=== PATIENT | female | born 1960 | race Caucasian/White ===

== ENCOUNTER → 2016-09-07 | Outpatient (CLI) | payer OTHER ==
[~2016-09-07] VITALS: Ht 162.6 cm; Wt 93.2 kg
[~2016-09-07] MED LIST: ALPRAZOLAM0.25 M2; ASCOMP WITH CO1 EACH PO; BENTYL10 MG PO; BIOTIN1000 MCG PO; BUTISOL SODIUM30 MG PO; COZAAR25 MG PO; CYMBALTA60 MG; ELOCON 0.1% CRE15 GM TP; ESTER-C 1,0001 EACH PO; FISH OIL 1,001000 M2 PO; GLUCOPHAGE1000 MG PO; KENALOG,ARISTOC80 GM TP; LIPITOR20 MG; LO-DOSE ASPIRIN81 M1 PO; LYRICA100 MG; LYRICA300 MG PO; MAGNESIUM400 M1 PO; NEURONTIN300 MG PO; NEXIUM40 MG; SKELAXIN400 M1; VICODIN 5-3001 EACH PO; VITAMIN B122500 MCG PO; VITAMIN D400 UNIT PO
[2016-09-07 07:42] VITALS: BP 154/76
== END | disposition home or self-care (01) ==
LOC: IVINF 08-12 07:00
PROVIDERS: Internal Medicine Endocrinology, Diabetes & Metabolism
DX: R79.89 Other specified abnormal findings of blood chemistry (principal)
CPT/HCPCS: 80400; 82024 90; 82533 91; 96374; J0834

== ENCOUNTER 2016-12-14 17:59 | Inpatient (IN) | payer OTHER ==
[~2016-12-14] VITALS: Ht 167.6 cm; Wt 97.3 kg
[~2016-12-14 17:59] MED LIST changes: -ALPRAZOLAM0.25 M2; +ALPRAZOLAM0.25 M2 PO; -NEXIUM40 MG; +NEXIUM40 MG PO
[2016-12-14 19:10] LABS: EOSINOPHIL (%) 5.4 % (0-5); EOSINOPHIL COUNT 0.5 K/uL (0-0.3); HEMATOCRIT 40.3 % (36.0-46.0); IMMATURE GRANULOCYTE (%) 0.3 % (0.0-0.7); INSTRUMENT ABS NEUTROPHIL CT 7.1 K/uL; LYMPHOCYTE COUNT 1.2 K/uL (1.0-2.8); MCH 28.1 PG (29.0-34.0); MCHC 32.5 G/DL (30.0-36.0); MCV 86.3 FL (83-99); MEAN PLAT.VOLUME 9.8 uM^3 (9.5-12.4); MONOCYTE (%) 5.1 % (3-12); MONOCYTE COUNT 0.5 K/uL (0-0.8); NEUTROPHIL (%) 76.3 % (45-76); NEUTROPHIL COUNT 7.1 K/uL (1.8-6.4); PLATELET COUNT 346 K/uL (156-360); RBC DIS.WIDTH-CV 12.7 % (11.8-14.6); RBC DIS.WIDTH-SD 39.7 % (39-53); RED BLOOD COUNT 4.67 M/uL (3.80-5.20); WHITE BLOOD COUNT 9.3 K/uL (4.1-10.2)
[2016-12-14 19:18] LABS: ADD MIUA? YES; BILIRUBIN NEGATIVE; BLOOD NEGATIVE; COLOR YELLOW ((YELLOW)); GLUCOSE (STRIP) NEGATIVE; KETONES NEGATIVE; LEUKOCYTES TRACE; NITRITE NEGATIVE; PROTEIN (STRIP) NEGATIVE; SPECIFIC GRAVITY 1.012 (1.000-1.030); UROBILINOGEN 0.2 MG/DL (0.2-1.0)
[2016-12-14 19:22] LABS: CHLORIDE 105 mEq/L (99-109); POTASSIUM 4.9 mEq/L (3.7-5.4); SODIUM 140 mEq/L (136-147)
[2016-12-14 19:23] LABS: BACTERIA NONE SEEN /HPF; EPITHELIAL CELLS RARE /HPF; MUCUS TRACE /LPF; RED BLOOD CELLS 0-5 /HPF (0-5); UCUL ADDED? NO; WHITE BLOOD CELLS 30-40 /HPF (0-5)
[2016-12-14 19:25] LABS: GLUCOSE 195 mg/dL (70-99)
[2016-12-14 19:26] LABS: ANION GAP 14 MEQ/L (2-14)
[2016-12-14 19:27] LABS: TOTAL BILIRUBIN 0.4 mg/dL (0.0-1.0)
[2016-12-14 19:28] LABS: ALKALINE PHOSPHATASE 62 IU/L (3-129); GFR ESTIMATE (CALCULATED) > 59 mL/min/
[2016-12-14 19:29] LABS: UREA NITROGEN (BUN) 15 mg/dL (9-23)
[2016-12-14 19:35] LABS: TROP-I INTERPRETATION NEGATIVE; TROPONIN-I < 0.01 ng/mL (0.0-0.30)
[2016-12-14 20:23] LABS: INFLUENZA A VIRAL ANTIGEN NEGATIVE; INFLUENZA B VIRAL ANTIGEN NEGATIVE
[2016-12-14] MEDS ORDERED: METAXALONE400 MG PO (20:52)
[2016-12-14] MEDS ORDERED: LIPITOR40 MG PO (20:56)
[2016-12-14] MEDS ORDERED: CYMBALTA60 MG PO (20:57)
[2016-12-14] MEDS ORDERED: HYDROCODON-ACE1 EAC8 PO (21:06)
[2016-12-14] MEDS ORDERED: ASCORBIC ACID500 M1 PO (21:12)
[2016-12-14] MEDS ORDERED: POTASSIUM CHLO10 ME3 PO (21:13)
[2016-12-14] MEDS ORDERED: TUMERIC COMPLEX PO (21:14)
[2016-12-14] MEDS ORDERED: B-COMPLEX-VITA1 EACH PO (21:14)
[2016-12-14] MEDS ORDERED: BUTALB-APAP-CA1 EACH PO (21:15)
[2016-12-14 22:37] VITALS: BP 138/65
[2016-12-15 03:17] VITALS: BP 123/68
[2016-12-15 06:14] LABS: EOSINOPHIL (%) 4.5 % (0-5); EOSINOPHIL COUNT 0.3 K/uL (0-0.3); HEMATOCRIT 33.3 % (36.0-46.0); IMMATURE GRANULOCYTE (%) 0.3 % (0.0-0.7); INSTRUMENT ABS NEUTROPHIL CT 3.6 K/uL; LYMPHOCYTE COUNT 2.1 K/uL (1.0-2.8); MCH 28.8 PG (29.0-34.0); MCHC 32.4 G/DL (30.0-36.0); MCV 88.8 FL (83-99); MEAN PLAT.VOLUME 10.3 uM^3 (9.5-12.4); MONOCYTE (%) 7.5 % (3-12); MONOCYTE COUNT 0.5 K/uL (0-0.8); NEUTROPHIL (%) 54.9 % (45-76); NEUTROPHIL COUNT 3.6 K/uL (1.8-6.4); PLATELET COUNT 325 K/uL (156-360); RBC DIS.WIDTH-CV 13.2 % (11.8-14.6); RBC DIS.WIDTH-SD 42.5 % (39-53); RED BLOOD COUNT 3.75 M/uL (3.80-5.20); WHITE BLOOD COUNT 6.6 K/uL (4.1-10.2)
[2016-12-15 06:40] LABS: ANION GAP 8 MEQ/L (2-14); CHLORIDE 108 MEQ/L (99-109); GFR ESTIMATE (CALCULATED) > 59 mL/min/; GLUCOSE 167 mg/dL (70-99); HDL CHOLESTEROL 22 MG/DL (Desirable>=50); LDL CHOLESTEROL 59 mg/dL (Desirable<100); NON-HDL CHOLESTEROL 94 mg/dL (Desirable<160); POTASSIUM 3.9 MEQ/L (3.7-5.4); SAMPLE HEMOLYSIS CHECK 0; SAMPLE ICTERIC CHECK 0; SAMPLE LIPEMIA CHECK 0; SODIUM 142 MEQ/L (136-147); TOTAL CHOLESTEROL 116 mg/dL (Desirable<200); TRIGLYCERIDES 177 MG/DL (Normal: <150); UREA NITROGEN (BUN) 13 mg/dL (9-23)
[2016-12-15 07:05] LABS: Estimated Average Glucose 194 mg/dL (70-123); HEMOGLOBIN A1c (GLYCOHEMOGLOB) 8.4 % HGB (Below 5.7)
[2016-12-15 07:40] LABS: INTERNAL CONTROL VALID? YES
[2016-12-15 07:54] VITALS: BP 128/73
[2016-12-15 08:49] LABS: INTACT PARATHYROID HORMONE 64 pg/mL (10-69)
[2016-12-15 11:59] VITALS: BP 155/66
[2016-12-15 16:12] VITALS: BP 150/90
[2016-12-15 20:00] VITALS: BP 143/75
[2016-12-16 03:40] VITALS: BP 145/74
[2016-12-16 06:12] LABS: HEMATOCRIT 35.3 % (36.0-46.0); MCHC 33.1 G/DL (30.0-36.0); MCV 87.6 FL (83-99); MEAN PLAT.VOLUME 9.8 uM^3 (9.5-12.4); PLATELET COUNT 294 K/uL (156-360); RBC DIS.WIDTH-CV 12.7 % (11.8-14.6); RBC DIS.WIDTH-SD 40.8 % (39-53); RED BLOOD COUNT 4.03 M/uL (3.80-5.20); WHITE BLOOD COUNT 6.7 K/uL (4.1-10.2)
[2016-12-16 06:43] LABS: ANION GAP 9 MEQ/L (2-14); CHLORIDE 106 MEQ/L (99-109); GFR ESTIMATE (CALCULATED) > 59 mL/min/; GLUCOSE 164 mg/dL (70-99); POTASSIUM 4.2 MEQ/L (3.7-5.4); SAMPLE HEMOLYSIS CHECK 0; SAMPLE ICTERIC CHECK 0; SAMPLE LIPEMIA CHECK 0; SODIUM 141 MEQ/L (136-147); UREA NITROGEN (BUN) 8 mg/dL (9-23)
[2016-12-16 08:09] VITALS: BP 145/83
[2016-12-16] MEDS ORDERED: VENTOLIN HFA18 GM IH (11:06)
[2016-12-16] MEDS ORDERED: DOXYCYCLINE HY100 MG PO ×2 (11:06→11:18)
== END 2016-12-16 12:58 | disposition home or self-care (01) | DRG 195 ==
LOC: EME 17:59 → EDOF 20:58 → 5SOUTH 20:58
PROVIDERS: Emergency Medicine; Hospitalist; Physician Assistant Medical
DX: J15.4 Pneumonia due to other streptococci (principal); M79.7 Fibromyalgia; E11.9 Type 2 diabetes mellitus without complications; I10 Essential (primary) hypertension; M54.81 Occipital neuralgia; E78.00 Pure hypercholesterolemia, unspecified; M06.9 Rheumatoid arthritis, unspecified; M45.9 Ankylosing spondylitis of unspecified sites in spine; R20.0 Anesthesia of skin; E66.9 Obesity, unspecified; K21.9 Gastro-esophageal reflux disease without esophagitis; K58.9 Irritable bowel syndrome, unspecified; G89.29 Other chronic pain; Z87.891 Personal history of nicotine dependence; Z87.442 Personal history of urinary calculi; Z68.34 Body mass index [BMI] 34.0-34.9, adult
CPT/HCPCS: 70450; 70551; 71020; 74177; 80048; 80053; 80061; 81003; 82330; 82565; 82607; 82746; 83036; 83605; 83970; 84484; 84520; 85025; 85027; 87040; 87070; 87205; 87449; 87502; 93005; 93970; 94640; 99202; 99281; 99285; J0456; J0696; J1200; J1650; J1885; J2765; J3010; J7030; J7050; J7120

== ENCOUNTER → 2017-02-16 | Outpatient (CLI) | payer OTHER ==
[~2017-02-16] MED LIST changes: +ASCORBIC ACID500 M1 PO; +B-COMPLEX-VITA1 EACH PO; +BUTALB-APAP-CA1 EACH PO; +CYMBALTA60 MG PO; +DOXYCYCLINE HY100 MG PO; +HYDROCODON-ACE1 EAC8 PO; +LIPITOR40 MG PO; +METAXALONE400 MG PO; +POTASSIUM CHLO10 ME3 PO; +TUMERIC COMPLEX PO; +VENTOLIN HFA18 GM IH
== END | disposition home or self-care (01) ==
LOC: NUC 01-19 08:30
DX: R14.0 Abdominal distension (gaseous) (principal)
CPT/HCPCS: 78264; A9541